=== PATIENT | female | born 1955 | race Caucasian/White ===

== ENCOUNTER → 2019-06-28 | Outpatient (BNVA) | payer OTHER, BC, SELFPAY | PROVIDERS: Family Provider Nurse Practitioner Family; PCP Nurse Practitioner Family; Visit Provider Nurse Practitioner Family | DX: M25.561 Pain in right knee (principal); G89.29 Other chronic pain; M17.11 Unilateral primary osteoarthritis, right knee | CPT/HCPCS: 73560 ==

== ENCOUNTER → 2019-06-29 17:12 | Outpatient (BNVA) | payer OTHER, BC, SELFPAY | PROVIDERS: Family Provider Nurse Practitioner Family; PCP Nurse Practitioner Family; Visit Provider Nurse Practitioner Family | DX: G89.29 Other chronic pain (principal); M17.10 Unilateral primary osteoarthritis, unspecified knee | CPT/HCPCS: 73560 ==

== ENCOUNTER → 2019-09-06 11:48 | Outpatient (BNVA) | payer OTHER, BC, SELFPAY | PROVIDERS: Family Provider Nurse Practitioner Family; PCP Nurse Practitioner Family; Visit Provider Nurse Practitioner Family | DX: M25.511 Pain in right shoulder (principal) | CPT/HCPCS: 73030 ==

== ENCOUNTER → 2019-09-08 11:45 | Outpatient (BNVA) | payer OTHER, BC, SELFPAY | PROVIDERS: Family Provider Nurse Practitioner Family; PCP Nurse Practitioner Family; Visit Provider Nurse Practitioner | DX: E03.9 Hypothyroidism, unspecified (principal) | CPT/HCPCS: 84443 ==

== ENCOUNTER 2020-03-20 15:17 | Outpatient (CLI) | payer OTHER, BC, SELFPAY ==
--- NOTE | 2020-03-20 15:23 | MM_ITS ---
WS: [id number] BILATERAL DIGITAL SCREENING MAMMOGRAM WITH CAD CLINICAL INFORMATION: SCREENING HISTORY: Screening mammogram. No current complaints. COMPARISON: TECHNIQUE: Bilateral CC and MLO views. FINDINGS: Fatty-replaced breasts bilaterally. No suspicious focal mass, asymmetry, calcifications, or web applications architect ural distortion. No evidence of malignancy. Dystrophic calcification right breast unchanged. MM/[id number] IMPRESSION: BI-RADS: 2-Benign FOLLOW UP: 1 Year Follow-up Recommend return to annual screening mammography.
== END 2020-03-20 15:18 | disposition home or self-care (01) ==
LOC: RADSHAW 15:21
PROVIDERS: PCP Nurse Practitioner Family; Visit Provider Nurse Practitioner Family
DX: Z12.31 Encounter for screening mammogram for malignant neoplasm of breast (principal)
CPT/HCPCS: 77067

== ENCOUNTER → 2020-05-23 11:37 | Outpatient (BNVA) | payer OTHER, BC, SELFPAY | PROVIDERS: PCP Nurse Practitioner Family; Visit Provider Nurse Practitioner Family | DX: N89.8 Other specified noninflammatory disorders of vagina (principal) | CPT/HCPCS: 87070; 87205 ==

== ENCOUNTER → 2020-10-22 12:04 | Outpatient (BNVA) | payer OTHER, BC, SELFPAY | PROVIDERS: PCP Nurse Practitioner Family; Visit Provider Nurse Practitioner Family | DX: N89.8 Other specified noninflammatory disorders of vagina (principal) | CPT/HCPCS: 87070; 87205 ==

== ENCOUNTER → 2020-11-01 10:43 | Outpatient (BNVA) | payer OTHER, BC, SELFPAY | PROVIDERS: PCP Nurse Practitioner Family; Visit Provider Nurse Practitioner Family | DX: R30.0 Dysuria (principal); R39.9 Unspecified symptoms and signs involving the genitourinary system | CPT/HCPCS: 81003; 87086 ==

== ENCOUNTER → 2020-11-20 11:11 | Outpatient (BNVA) | payer OTHER, BC, SELFPAY | PROVIDERS: PCP Nurse Practitioner Family; Visit Provider Nurse Practitioner Family | DX: I10 Essential (primary) hypertension (principal); E55.9 Vitamin D deficiency, unspecified; E03.9 Hypothyroidism, unspecified | CPT/HCPCS: 80053; 80061; 81003; 82306; 83036; 84443; 85025 ==

== ENCOUNTER 2021-04-15 09:11 | Outpatient (CLI) | payer OTHER, BC, SELFPAY ==
--- NOTE | 2021-04-15 09:17 | MM_ITS ---
WS: [id number] BILATERAL SCREENING DIGITAL MAMMOGRAM WITH CAD HISTORY: SCREENING COMPARISON: 03/20/2020, 02/04/2019 and 12/19/2016. Bilateral CC and MLO views submitted. Computer aided detection analyzed. Breast composition: There are scattered areas of fibroglandular density. No suspicious masses, microc alcifications or architectural distortion. Coarse benign calcification in the middle inferior RIGHT b reast. There is additional calcification central to the nipple posteriorly. These calcifications have been stable over multiple prior years. MM/[place] [id number] IMPRESSION: BI-RADS: 2-Benign FOLLOW UP: 1 Year Follow-up
== END 2021-04-15 09:12 | disposition home or self-care (01) ==
PROVIDERS: PCP Nurse Practitioner Family; Visit Provider Nurse Practitioner Family
DX: Z12.31 Encounter for screening mammogram for malignant neoplasm of breast (principal)
CPT/HCPCS: 77067

== ENCOUNTER → 2021-05-13 08:55 | Outpatient (BNVA) | payer OTHER, BC, SELFPAY | PROVIDERS: PCP Nurse Practitioner Family; Visit Provider Nurse Practitioner Family | DX: R06.02 Shortness of breath (principal) | CPT/HCPCS: 71046 ==

== ENCOUNTER → 2021-05-27 08:48 | Outpatient (BNVA) | payer OTHER, BC, SELFPAY | PROVIDERS: PCP Nurse Practitioner Family; Visit Provider Nurse Practitioner Family | DX: M79.641 Pain in right hand (principal) | CPT/HCPCS: 73130 ==

== ENCOUNTER → 2021-08-13 08:02 | Outpatient (BNVA) | payer OTHER, BC, SELFPAY | PROVIDERS: PCP Nurse Practitioner Family; Visit Provider Nurse Practitioner Family | DX: M25.9 Joint disorder, unspecified (principal) | CPT/HCPCS: 85651; 86140; 86160; 86162; 86200; 86235; 86255; 86376; 86431 ==

== ENCOUNTER → 2021-08-23 08:43 | Outpatient (BNVA) | payer OTHER, BC, SELFPAY | PROVIDERS: PCP Nurse Practitioner Family; Visit Provider Nurse Practitioner Family | DX: M25.471 Effusion, right ankle (principal) | CPT/HCPCS: 73610; 73630; 84550 ==

== ENCOUNTER → 2021-08-30 07:57 | Outpatient (BNVA) | payer OTHER, BC, SELFPAY | PROVIDERS: PCP Nurse Practitioner Family; Visit Provider Surgery | DX: Z20.822 Contact with and (suspected) exposure to COVID-19 (principal); Z11.52 Encounter for screening for COVID-19 | CPT/HCPCS: 87635 ==

== ENCOUNTER 2021-09-06 09:14 | Day surgery (SDC) | payer OTHER, BC, SELFPAY ==
[2021-09-04 11:44] VITALS: BMI 34.4
--- NOTE | 2021-09-06 09:34 | P.ANESASSM_ITS ---
Pre-Anesthetic Assessment Height/Weight: Height 1.7 m Weight 99.79 kg Operation Date: 09/06/21 11:00 Proposed Procedures p [id number]/[id number](Not Applicable) - Felice Rojas MD s Colonoscopy(Not Applicable) - Felice Rojas MD Familial anesthetic complications: None Was Beta Trace taken within 24 hours: N/A Was Clonidine taken within 24 hours: N/A Social No alcohol and No tobacco Exam alert, oriented x 3, clear to auscultation bilaterally and regular rate & rhythm Airway Submandibular: within normal limits Cervical ROM: within normal limits Mallampati: Class II Dentition: full GI Gastroesophageal Reflux Disease Metabolic Morbid Obesity Neuropsych Anxiety Anesthetic Plan ASA status: 2 Anesthesia: MAC Medications/Allergies Home Medications Medication Instructions Recorded Confirmed Last Taken Type krill oil 500 mg capsule 500 mg PO DAILY 11/21/20 09/04/21 Unknown History pantoprazole 40 mg tablet,delayed 40 mg PO BID #60 tab 05/29/21 09/04/21 Unknown Rx release (Protonix) alprazolam 0.5 mg tablet (Xanax) 0.25 mg PO DAILY 30 Days #15 tab 06/03/21 09/04/21 Unknown Rx gabapentin 300 mg capsule 300 mg PO .nightly 30 Days #30 cap 08/01/21 09/04/21 Unknown Rx naproxen 500 mg tablet 500 mg PO BID PRN 30 Days #60 tab 08/01/21 09/04/21 Unknown Rx ondansetron HCl 4 mg tablet 4 mg PO Q8H PRN #30 tab 08/01/21 09/04/21 Unknown Rx (Zofran) cholecalciferol (vitamin D3) 1,250 1,250 mcg PO DAILY 09/04/21 09/04/21 Unknown History mcg (50,000 unit) capsule Allergies Allergy/AdvReac Type Severity Reaction Status Date / Time Sulfa (Sulfonamide Allergy swelling Verified 08/01/21 13:20 Antibiotics) FOR[facility]LY [facility] Anesthesia Medical History (Updated 08/28/21 @ 14:16 by JOHN Cuevas) History of gastroesophageal reflux (GERD) Has had symptoms since her 30s controlled on medication. Positive JAYESH (antinuclear antibody) Surgical History History of basal cell carcinoma (~2018) local excision on the face History of colonoscopy 2013 History of hysterectomy (~1995) 03/14/1996----total abdominal hysterectomy, Uytkieow-Uchcwkgjw-Gihwgy procedure (still has ovaries). Diagnosis: Uterine fibroids and stress urinary incontinence. Performed by Dr. Emmanuel Maxwell at performed at [facility] [place] [facility] in [place], [place]. History of left knee surgery 2009----left knee scope Family History Mother Hypertension Father Hypertension Cancer prostate cancer-- father Hyperlipidemia Family/Other Colon cancer maternal aunt, two paternal aunts, all diagnosed in their 70s. Denies family history of Ovarian cancer Diabetes Clotting disorder Breast cancer Bleeding disorder Uterine cancer Stroke Data Anesthesia Cardiac Studies: No Data to Display
[2021-09-06 10:02] VITALS: BP 174/113; PULSE 79; RESP 16; TEMP 36.5; O2SAT 99
[2021-09-06] MEDS: sodium chloride 0.9% 1,000 ML 30 ML IV (10:13)
--- NOTE | 2021-09-06 11:57 | P.HP_ITS ---
Same Day Surgery H&P Indication for Procedure/HPI DATE OF PROCEDURE: September 06, 2021 CHIEF COMPLAINT/INDICATIONFOR SURGICAL PROCEDURE: egd/colon PREOP DIAGNOSIS: diagnostic PLANNED PROCEDURE: Operation Date: 09/06/21 11:00 Proposed Procedures p [id number](Not Applicable) - Felice Rojas MD s Colonoscopy(Not Applicable) - Felice Rojas MD Medications/Allergies* Home Medications Medication Instructions Recorded Confirmed Type krill oil 500 mg capsule 500 mg PO DAILY 11/21/20 09/06/21 History cholecalciferol (vitamin D3) 1,250 1,250 mcg PO DAILY 09/04/21 09/06/21 History mcg (50,000 unit) capsule Allergies/Adverse Reactions Allergy/AdvReac Type Severity Reaction Status Date / Time Sulfa (Sulfonamide Allergy swelling Verified 09/06/21 10:01 Antibiotics) Current Medications: Generic Name Dose Route Start Last Admin Trade Name Freq PRN Reason Stop Dose Admin Sodium Chloride 1,000 mls @ 30 mls/hr 09/06/21 09:45 09/06/21 10:13 Sodium Chloride 0.9% IV 09/07/21 09:44 30 mls/hr .Q24H SADIQ Administration Pertinent History/Comorbid Conditions* Medical History (Updated 08/28/21 @ 14:16 by JOHN Cuevas) History of gastroesophageal reflux (GERD) Has had symptoms since her 30s controlled on medication. Positive JAYESH (antinuclear antibody) Surgical History (Updated 07/22/21 @ 09:00 by Felice Rojas MD) History of basal cell carcinoma (~2017) local excision on the face History of colonoscopy 2013 History of hysterectomy (~1995) 03/14/1996----total abdominal hysterectomy, Iweihezg-Nxysnbtvm-Srkafh procedure (still has ovaries). Diagnosis: Uterine fibroids and stress urinary incontinence. Performed by Dr. Emmnauel Maxwell at performed at [facility] in [place], [place]. History of left knee surgery 2009----left knee scope Family History (Updated 05/08/21 @ 10:08 by Sari Church RN) Colon cancer Family/Other maternal aunt, two paternal aunts, all diagnosed in their 70s. Hyperlipidemia Father Cancer Father prostate cancer-- father Hypertension Mother Father Denies family history of Ovarian cancer Diabetes Clotting disorder Breast cancer Bleeding disorder Uterine cancer Stroke Pertinent Exam Findings alert, oriented x 3 and regular rate & rhythm Recommendations Surgery/Procedure today Coding Level of Care Code Acute Launch Check Out for [place]
[2021-09-06 12:34] VITALS: BP 108/61; PULSE 68; RESP 18; TEMP 36.2; O2SAT 95
--- NOTE | 2021-09-06 12:35 | ANE.PACU2 ---
Inpatient post-anesthesia follow up: Airway intact: Yes Vital signs: Temperature 97.1 F Pulse Rate 68 Respiratory Rate 18 Blood Pressure 108/61 Pulse Oximetry 95 Oxygen Delivery Me thod Nasal Cannula Oxygen Flow Rate 3 Fraction of Inspir ed Oxygen Hydration adequate: Yes Nausea and vomiting: No Pain level: 1 Mental status: Baseline
[2021-09-06 12:41] VITALS: BP 114/65; PULSE 68; RESP 17; O2SAT 100
== END 2021-09-06 12:54 | disposition home or self-care (01) ==
PROVIDERS: PCP Nurse Practitioner Family; Visit Provider Surgery
PROC: 0DJ08ZZ Inspection of Upper Intestinal Tract, Via Natural or Artificial Opening Endoscopic (ICD-10-PCS; CPT 43235; principal; 2021-09-06 11:00)
PROC: 0DJD8ZZ Inspection of Lower Intestinal Tract, Via Natural or Artificial Opening Endoscopic (ICD-10-PCS; CPT 45378; 2021-09-06 11:00)
DX: K57.30 Diverticulosis of large intestine without perforation or abscess without bleeding (principal); K29.70 Gastritis, unspecified, without bleeding; Z80.0 Family history of malignant neoplasm of digestive organs; K21.9 Gastro-esophageal reflux disease without esophagitis; Z82.49 Family history of ischemic heart disease and other diseases of the circulatory system; E66.01 Morbid (severe) obesity due to excess calories; Z68.34 Body mass index [BMI] 34.0-34.9, adult; D12.4 Benign neoplasm of descending colon
CPT/HCPCS: 43239; 45380; 88305; 88342; J2704; J7030

== ENCOUNTER → 2021-11-18 11:52 | Outpatient (BNVA) | payer OTHER, BC, MEDICARE, SELFPAY | PROVIDERS: PCP Nurse Practitioner Family; Visit Provider Nurse Practitioner | DX: E03.9 Hypothyroidism, unspecified (principal); E55.9 Vitamin D deficiency, unspecified | CPT/HCPCS: 82306; 84443 ==

== ENCOUNTER → 2021-12-30 13:37 | Outpatient (BNVA) | payer OTHER, BC, MEDICARE, SELFPAY | PROVIDERS: PCP Nurse Practitioner Family; Visit Provider Nurse Practitioner | DX: M17.12 Unilateral primary osteoarthritis, left knee (principal); M25.562 Pain in left knee | CPT/HCPCS: 73562 ==

== ENCOUNTER → 2022-03-11 07:32 | Outpatient (BNVA) | payer OTHER, BC, SELFPAY | PROVIDERS: PCP Nurse Practitioner Family; Visit Provider Student in an Organized Health Care Education/Training Program | DX: M17.0 Bilateral primary osteoarthritis of knee (principal) | CPT/HCPCS: 73560; 73565 ==

== ENCOUNTER 2022-03-11 08:29 | Outpatient (CLI) | payer OTHER, BC, SELFPAY | END 2022-03-11 08:30 | disposition home or self-care (01) | LOC: SPT 08:31 | PROVIDERS: PCP Nurse Practitioner Family; Visit Provider Student in an Organized Health Care Education/Training Program | DX: Z46.89 Encounter for fitting and adjustment of other specified devices (principal); M17.11 Unilateral primary osteoarthritis, right knee | CPT/HCPCS: 97760; L1852 ==

== ENCOUNTER 2022-07-02 08:05 | Outpatient (CLI) | payer OTHER, BC, SELFPAY ==
--- NOTE | 2022-07-02 08:12 | MM_ITS ---
WS: [id number] BILATERAL SCREENING DIGITAL TOMOSYNTHESIS MAMMOGRAM WITH CAD HISTORY: SCREENING COMPARISON: 04/15/2021, 03/20/2020 and 01/27/2018 Bilateral CC and MLO views with tomosynthesis and synthetic mammography submitted. Computer aided det ection analyzed. Breast composition: There are scattered areas of fibroglandular density. No suspicious masses, microc alcifications or architectural distortion. Coarse calcifications probably degenerating fibroadenoma c entral RIGHT breast. Benign calcifications RIGHT breast. MM/[place] [id number] IMPRESSION: BI-RADS: 2-Benign FOLLOW UP: 1 Year Follow-up
== END 2022-07-02 08:06 | disposition home or self-care (01) ==
PROVIDERS: PCP Nurse Practitioner; Visit Provider Nurse Practitioner
DX: Z12.31 Encounter for screening mammogram for malignant neoplasm of breast (principal)
CPT/HCPCS: 77063; 77067

== ENCOUNTER → 2022-08-12 15:10 | Outpatient (BNVA) | payer OTHER, BC, SELFPAY | PROVIDERS: PCP Nurse Practitioner; Visit Provider Nurse Practitioner | DX: M47.897 Other spondylosis, lumbosacral region (principal) | CPT/HCPCS: 72100 ==

== ENCOUNTER 2022-09-16 06:00 | Outpatient (RCR) | payer OTHER, BC, SELFPAY | END 2022-10-12 23:59 | disposition home or self-care (01) | LOC: WPT 06:00 | PROVIDERS: PCP Nurse Practitioner; Visit Provider Nurse Practitioner | DX: M54.50 Low back pain, unspecified (principal) | CPT/HCPCS: 97110; 97112; 97161; 97530 ==

== ENCOUNTER 2022-10-13 06:00 | Outpatient (RCR) | payer OTHER, BC, SELFPAY | END 2022-11-12 23:59 | disposition home or self-care (01) | LOC: WPT 06:00 | PROVIDERS: PCP Nurse Practitioner; Visit Provider Nurse Practitioner | DX: M54.50 Low back pain, unspecified (principal) | CPT/HCPCS: 97110; 97112; 97530 ==

== ENCOUNTER → 2022-10-13 10:32 | Outpatient (BNVA) | payer OTHER, BC, SELFPAY | PROVIDERS: PCP Nurse Practitioner; Visit Provider Nurse Practitioner | DX: Z00.00 Encounter for general adult medical examination without abnormal findings (principal); Z79.899 Other long term (current) drug therapy | CPT/HCPCS: 80053; 82306; 84443; 85025 ==

== ENCOUNTER 2022-11-22 02:19 | Outpatient (RCR) | payer OTHER, BC, SELFPAY | END 2022-12-12 23:59 | disposition home or self-care (01) | LOC: WPT 02:19 | PROVIDERS: PCP Nurse Practitioner; Visit Provider Nurse Practitioner | DX: M54.50 Low back pain, unspecified (principal) | CPT/HCPCS: 97110; 97112; 97530 ==

== ENCOUNTER → 2022-11-24 11:26 | Outpatient (BNVA) | payer OTHER, BC, SELFPAY | PROVIDERS: PCP Nurse Practitioner; Visit Provider Nurse Practitioner | DX: L68.0 Hirsutism (principal) | CPT/HCPCS: 82627; 82670; 83001; 83002; 84144; 84146; 84403 ==

== ENCOUNTER 2022-12-01 06:50 | Outpatient (CLI) | payer OTHER, BC, SELFPAY ==
--- NOTE | 2022-12-01 07:15 | MR_ITS ---
WS: [id number] MRI LUMBAR SPINE NONCONTRAST HISTORY: numbness and tingling; back pain, LEFT lower extremity pain. COMPARISON: 10/02/2009 TECHNIQUE: Sagittal and axial multisequence imaging is submitted. Mild thoracolumbar curvature. L4 anterolisthesis by 3 mm. Otherwise alignment is normal. Moderate advanced degenerative disc diseas e at L5-S1. No marrow edema or compression fracture. Conus terminates normally at L1. L1-L2: Normal. L2-L3: Mild annular disc bulging and mild ligamentum flavum and facet arthritis. Mild bilateral subar ticular recess encroachment. L3-L4: Mild facet arthritis. No stenosis L4-L5: Diffuse annular disc bulge. Very shallow central and LEFT foraminal disc protrusions. Moderate ligamentum flavum and facet arthritis. Moderate central, bilateral subarticular recess and mild fora hasmukh stenosis. Most significant disc contact on the traversing L5 nerve roots. Nerve roots are being deformed. Moderate facet joint arthritis. L5-S1: Mild disc bulging. Shallow LEFT foraminal disc protrusion. Disc also contacts the S1 nerve bang ts, LEFT greater than RIGHT. Annular fissure in the LEFT foraminal disc protrusion and osteophytic ri dging of the vertebral body. Mild LEFT foraminal stenosis. Mild facet arthritis. MR/MR lumbar spine wo con* [id number] IMPRESSION: 1. L4 anterolisthesis by 3 mm. 2. Moderate central, bilateral subarticular recess and mild foraminal stenosis at L4-5. Most significant contact on the traversing L5 nerve roots. Central an d LEFT foraminal shallow disc protrusions at L4-5. 3. Shallow LEFT foraminal disc protrusion at L5-S1 with disc contacting the S1 nerve roots, LEFT greater than RIGHT. Mild LEFT foraminal stenosis. 4. Moderate facet joint arthritis at L4-5 and mild at L2-3, L3-4 and L5-S1.
== END 2022-12-01 06:51 | disposition home or self-care (01) ==
PROVIDERS: PCP Nurse Practitioner; Visit Provider Nurse Practitioner
DX: M51.27 Other intervertebral disc displacement, lumbosacral region (principal); M48.061 Spinal stenosis, lumbar region without neurogenic claudication; M47.817 Spondylosis without myelopathy or radiculopathy, lumbosacral region; R20.0 Anesthesia of skin; R20.2 Paresthesia of skin
CPT/HCPCS: 72148

== ENCOUNTER → 2022-12-04 08:28 | Outpatient (BNVA) | payer OTHER, BC, SELFPAY | PROVIDERS: PCP Nurse Practitioner; Visit Provider Physician Assistant | DX: M54.50 Low back pain, unspecified (principal) | CPT/HCPCS: 72100 ==

== ENCOUNTER → 2023-01-27 09:16 | Outpatient (BNVA) | payer OTHER, BC, SELFPAY | PROVIDERS: PCP Nurse Practitioner; Visit Provider Nurse Practitioner | DX: M79.641 Pain in right hand (principal) | CPT/HCPCS: 73130 ==

== ENCOUNTER → 2023-05-05 08:39 | Outpatient (BNVA) | payer OTHER, BC, SELFPAY | PROVIDERS: PCP Nurse Practitioner; Visit Provider Nurse Practitioner Women's Health | DX: Z78.0 Asymptomatic menopausal state (principal) | CPT/HCPCS: 82306 ==

== ENCOUNTER 2023-05-13 15:45 | Outpatient (CLI) | payer OTHER, BC, SELFPAY ==
--- NOTE | 2023-05-13 16:00 | MR_ITS ---
WS: [id number] MRI RIGHT KNEE HISTORY: M17.10 - Unilateral primary osteoarthritis, unspecified knee COMPARISON: 12/13/2010 Anterior cruciate ligament: Extensive mucoid degeneration throughout the ACL. There is no full-thickn ess tear. The areas of increased signal all appear to be degenerative. Posterior cruciate ligament: Mild mucoid degeneration but intact. Medial collateral ligament: Displacement from the joint line by an extruded meniscus and osteophyte. No MCL tear. Posterior lateral corner structures: Intact. Medial menisci: Abnormal signal in the anterior and posterior horns with extrusion from the joint bobby e. Complex tear in the posterior horn extends into the meniscal root. Complete loss of normal signal within the meniscus. Lateral meniscus: Blunting of the posterior horn free edge. Otherwise negative. Extensor mechanism: Distal quadriceps tendon and patellar tendons are intact. Fluid and soft tissue: Moderate joint effusion. The joint effusion contains small loose bodies throug hout. There is an additional Prince's cyst. There is a complex collection posterior to the lateral fem oral condyle which is probably a distended bursa containing small loose bodies. There are also small loose bodies within the Prince's cyst component. Osseous and articular structures: Patellofemoral compartment: Mild patellofemoral joint space narrowing with mild diffuse chondromalaci a Medial compartment: Moderate narrowing of the medial compartment with near complete loss of cartilage . Marrow edema along the medial tibial plateau. Small marginal osteophytes. Lateral compartment: Mild narrowing of the lateral compartment with moderate diffuse chondromalacia. Small osteochondral lesion along the anterior tibial plateau. IMPRESSION: 1. Extensive mucoid degeneration throughout the ACL is related to aging. 2. Anterior and posterior horns of the medial meniscus are extruded from the joint line with a comple x tear in the posterior horn extending into the meniscal root. 3. Suspect small radial tear free edge posterior horn of the lateral meniscus. 4. Moderate size joint effusion with numerous small loose bodies. 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 5. Moderate-sized Prince's cyst. 6. Moderate narrowing medial compartment with diffuse loss of cartilage. 7. Marrow edema along the tibial plateau. 8. Mild narrowing of the patellofemoral and lateral compartments.
== END 2023-05-13 15:46 | disposition home or self-care (01) ==
LOC: RAD 15:46
PROVIDERS: PCP Nurse Practitioner; Visit Provider Nurse Practitioner Family
DX: M17.11 Unilateral primary osteoarthritis, right knee (principal); S83.231A Complex tear of medial meniscus, current injury, right knee, initial encounter; X58.XXXA Exposure to other specified factors, initial encounter; M25.461 Effusion, right knee; M23.41 Loose body in knee, right knee; M71.21 Synovial cyst of popliteal space [Baker], right knee
CPT/HCPCS: 73721

== ENCOUNTER 2023-07-01 08:20 | Outpatient (CLI) | payer OTHER, BC, SELFPAY ==
--- NOTE | 2023-07-01 08:24 | US_ITS ---
WS: [id number] Complete ABDOMINAL ULTRASOUND HISTORY: K81.9 - Cholecystitis, unspecified COMPARISON: None available. Liver: 15.5 cm in length. Normal size liver and echogenicity. No bile duct dilatation or mass. Portal Vein: Normal hepatopetal flow with monophasic waveform. Gallbladder: Normally distended gallbladder with no stones or wall thickening. CBD: 0.2 cm Pancreas: Normal size and echogenicity. Right kidney: 9.9 cm x 6.4 x 5.0 cm. Cortex: 1.2 cm. Normal size and echogenicity. No hydronephrosis or mass. Left kidney: 9.2 cm x 4.6 cm x 5.2 cm. Cortex: 1.2 cm. Normal size and echogenicity. No hydronephrosis or mass. Spleen: Normal. Aorta and IVC: Unremarkable abdominal aorta and IVC. Impression: Normal complete abdomen ultrasound.
== END 2023-07-01 08:21 | disposition home or self-care (01) ==
LOC: RAD 08:20
PROVIDERS: PCP Nurse Practitioner; Visit Provider Nurse Practitioner Family
DX: K81.9 Cholecystitis, unspecified (principal); Z87.19 Personal history of other diseases of the digestive system; M51.36 Other intervertebral disc degeneration, lumbar region; K29.70 Gastritis, unspecified, without bleeding; Z13.6 Encounter for screening for cardiovascular disorders; Z79.899 Other long term (current) drug therapy
CPT/HCPCS: 76700; 80053; 80061; 81003; 82150; 82607; 82746; 83036; 83550; 83690; 84439; 84443; 85025; 85651; 86140

== ENCOUNTER 2023-08-19 09:30 | Outpatient (CLI) | payer OTHER, BC, SELFPAY ==
--- NOTE | 2023-08-19 09:30 | MM_ITS ---
WS: [id number] BILATERAL SCREENING DIGITAL TOMOSYNTHESIS MAMMOGRAM WITH CAD HISTORY: Z12.31 - Encounter for screening mammogram for malignant ... COMPARISON: 07/02/2022, 04/15/2021 and 03/20/2020 Bilateral CC and MLO views with tomosynthesis and synthetic mammography submitted. Computer aided det ection analyzed. Breast composition: The breasts are almost entirely fatty. No suspicious masses, microcalcifications or architectural distortion. Benign coarse calcification in the central RIGHT breast from a degenerat ing fibroadenoma. No suspicious masses and no calcifications. IMPRESSION: MM/[place] [id number] BI-RADS: 2-Benign FOLLOW UP: 1 Year Follow-up
== END 2023-08-19 09:31 | disposition home or self-care (01) ==
LOC: MOBLMAM 09:38
PROVIDERS: PCP Nurse Practitioner Women's Health; Referring Provider Nurse Practitioner Family; Visit Provider Nurse Practitioner Women's Health
DX: Z12.31 Encounter for screening mammogram for malignant neoplasm of breast (principal)
CPT/HCPCS: 77063; 77067; 82306

== ENCOUNTER → 2023-09-22 10:54 | Outpatient (BNVA) | payer OTHER, BC, SELFPAY | PROVIDERS: PCP Nurse Practitioner Family; Visit Provider Student in an Organized Health Care Education/Training Program | DX: M25.461 Effusion, right knee (principal); M17.11 Unilateral primary osteoarthritis, right knee | CPT/HCPCS: 73560; 73565 ==

== ENCOUNTER → 2023-11-12 11:32 | Outpatient (BNVA) | payer OTHER, BC, SELFPAY | PROVIDERS: PCP Nurse Practitioner Family; Visit Provider Student in an Organized Health Care Education/Training Program | DX: Z01.818 Encounter for other preprocedural examination (principal); Z79.899 Other long term (current) drug therapy | CPT/HCPCS: 80053; 81000; 85025 ==

== ENCOUNTER → 2023-11-16 12:06 | Outpatient (BNVA) | payer OTHER, BC, SELFPAY | PROVIDERS: PCP Nurse Practitioner Family; Visit Provider Family Medicine | DX: Z01.818 Encounter for other preprocedural examination (principal); I21.19 ST elevation (STEMI) myocardial infarction involving other coronary artery of inferior wall; Z79.899 Other long term (current) drug therapy | CPT/HCPCS: 81003; 87086; 93005 ==

== ENCOUNTER 2023-11-20 13:58 | Outpatient (CLI) | payer OTHER, BC, SELFPAY ==
--- NOTE | 2023-11-20 14:30 | CT_ITS ---
WS: [email or web address] CT RIGHT KNEE, NONCONTRAST [facility] TECHNIQUE: Noncontrast CT of the RIGHT knee to include the RIGHT hip and ankle. CLINICAL INFORMATION: M17.11 - Unilateral primary osteoarthritis, right knee DLP: 876.[address] scans at [facility] use at least one of these dose optimization techniques: automated e xposure control; mA and/or kV adjustment per patient size (includes targeted exams where dose is matc hed to clinical indication); or iterative reconstruction. FINDINGS: Moderate to advanced tricompartmental arthritis RIGHT knee. Hypertrophic patella. Moderate suprapatel lar effusion. Lobulated popliteal cyst measuring 2.7 x 1.8 cm. Hypertrophic changes along the joint l ine. Small bladder cystocele. CT/[place] NEO [id number] IMPRESSION: Images obtained for preoperative purposes.
== END 2023-11-20 13:59 | disposition home or self-care (01) ==
LOC: RAD 13:59
PROVIDERS: PCP Nurse Practitioner Family; Visit Provider Student in an Organized Health Care Education/Training Program
DX: Z01.818 Encounter for other preprocedural examination (principal); M17.11 Unilateral primary osteoarthritis, right knee; M79.4 Hypertrophy of (infrapatellar) fat pad; M25.461 Effusion, right knee; M71.21 Synovial cyst of popliteal space [Baker], right knee; N81.10 Cystocele, unspecified
CPT/HCPCS: 73700

== ENCOUNTER 2023-11-30 15:13 | Observation (INO) | payer OTHER, BC, SELFPAY ==
[2023-11-30] VITALS (11 sets, daily range): BP systolic 106–192; BP diastolic 57–114; PULSE 75–101; RESP 14–18; TEMP 36.2–36.6; O2SAT 96–99; BMI 35.3
[2023-11-30] MEDS: lactated ringers 500 ML IV (12:40)
[2023-11-30] MEDS: scopolamine 1.5 Patch 1 PATCH TRANSDERMA (12:40)
[2023-11-30] MEDS: ketorolac 30 mg/mL INJ IVP (12:40)
[2023-11-30] MEDS: acetaminophen 1,000 MG/100 ML PIGGYBACK 400 MG IV ×2 (12:40→21:05)
[2023-11-30] MEDS: sodium chloride 0.9% 1,000 ML 30 ML IV (12:41)
--- NOTE | 2023-11-30 12:55 | P.ANESASSM_ITS ---
Pre-Anesthetic Assessment Height/Weight: Height 1.68 m Weight 99.337 kg Temp Pulse Resp BP Pulse Ox O2 Del Method 97.4 F L 95 18 192/114 99 Room Air 11/30/23 12:04 11/30/23 12:04 11/30/23 12:04 11/30/23 12:04 11/30/23 12:04 11/30/23 12:05 Operation Date: 11/30/23 13:50 Proposed Procedures p [facility] Total Knee Arthroplasty(Right) - Mike Peña DO Familial anesthetic complications: None Was Beta Trace taken within 24 hours: N/A Was Clonidine taken within 24 hours: N/A Last intake: Intake Last Liquid Date 11/29/23 Last Liquid Time 22:00 Last Solid Date 11/29/23 Last Solid Time 20:00 Social No alcohol and No tobacco Airway Mallampati: Class II CV/HEM Hypertension GI Gastroesophageal Reflux Disease Anesthetic Plan ASA status: 2 Anesthesia: Regional (specify below) Risk of > 500 ml blood loss (7ml/kg in children): No Medications/Allergies Home Medications Medication Instructions Recorded Confirmed Last Taken Type meloxicam 15 mg tablet 15 mg PO DAILY #90 tabs 04/30/23 11/27/23 11/20/23 Rx alprazolam 0.5 mg tablet 0.5 mg PO PRN PRN Anxiety 08/26/23 11/30/23 11/29/23 History cyclobenzaprine 5 mg tablet 5 mg PO TID PRN muscle spasm #30 09/15/23 11/27/23 11/27/23 Rx tabs pantoprazole 40 mg tablet,delayed 40 mg PO DAILY 11/16/23 11/30/23 11/29/23 History release telmisartan 40 mg tablet 40 mg PO DAILY #90 tabs 11/17/23 11/30/23 11/29/23 Rx Allergies Allergy/AdvReac Type Severity Reaction Status Date / Time Sulfa (Sulfonamide Allergy swelling Verified 11/27/23 08:56 Antibiotics) Current Medications Generic Name Dose Route Start Last Admin Trade Name Freq PRN Reason Stop Dose Admin Sodium Chloride 1,000 mls @ 30 mls/hr 11/30/23 12:00 11/30/23 12:41 Sodium Chloride 0.9% IV 12/01/23 11:59 30 mls/hr .Q24H SADIQ Administration PFSH Anesthesia Medical History Gastritis UTI symptoms Psychiatric care Positive JAYESH (antinuclear antibody) History of gastroesophageal reflux (GERD) Has had symptoms since her 30s controlled on medication. Surgical History H/O esophagogastroduodenoscopy (09/06/21) History of colonoscopy 2013 2021 - colon polyp ,diverticulosis History of basal cell carcinoma (~2017) local excision on the face History of left knee surgery 2009----left knee scope History of hysterectomy (~1995) 03/14/1996----total abdominal hysterectomy, Rshpvcqg-Vlaxorylh-Lzdnob procedure (still has ovaries). Diagnosis: Uterine fibroids and stress urinary incontinence. Performed by Dr. Emmanuel Maxwell at performed at [facility] in [place], [place]. Family History Mother Hypertension Father Hypertension Cancer prostate cancer-- father Hyperlipidemia Family/Other Colon cancer maternal aunt, two paternal aunts, all diagnosed in their 70s. Denies family history of Ovarian cancer Diabetes Clotting disorder Breast cancer Bleeding disorder Uterine cancer Stroke Social History Smoking and tobacco/nicotine status: never used tobacco/nicotine Data Anesthesia Cardiac Studies: No Data to Display
--- NOTE | 2023-11-30 13:20 | W.PM.OPSFHP ---
Same Day Surgery H&P Indication for Procedure/HPI DATE OF PROCEDURE: November 30, 2023 CHIEF COMPLAINT/INDICATIONFOR SURGICAL PROCEDURE: Right knee degenerative joint disease PREOP DIAGNOSIS: right knee degenerative joint disease PLANNED PROCEDURE: Operation Date: 11/30/23 13:50 Proposed Procedures p [facility] Total Knee Arthroplasty(Right) - Mike Peña DO Medications/Allergies* Home Medications Medication Instructions Recorded Confirmed Type alprazolam 0.5 mg tablet 0.5 mg PO PRN PRN Anxiety 08/26/23 11/30/23 History pantoprazole 40 mg tablet,delayed 40 mg PO DAILY 11/16/23 11/30/23 History release Allergies/Adverse Reactions Allergy/AdvReac Type Severity Reaction Status Date / Time Sulfa (Sulfonamide Allergy swelling Verified 11/27/23 08:56 Antibiotics) Current Medications: Generic Name Dose Route Start Last Admin Trade Name Freq PRN Reason Stop Dose Admin Sodium Chloride 1,000 mls @ 30 mls/hr 11/30/23 12:00 11/30/23 12:58 Sodium Chloride 0.9% IV 12/01/23 11:59 Infused .Q24H SADIQ Infusion Pertinent History/Comorbid Conditions* Medical History (Updated 10/05/23 @ 22:31 by Mike Peña DO) Gastritis UTI symptoms Psychiatric care Positive JAYESH (antinuclear antibody) History of gastroesophageal reflux (GERD) Has had symptoms since her 30s controlled on medication. Surgical History (Updated 09/06/21 @ 12:35 by Felice Rojas MD) H/O esophagogastroduodenoscopy (09/06/21) History of colonoscopy 2013 2021 - colon polyp ,diverticulosis History of basal cell carcinoma (~2017) local excision on the face History of left knee surgery 2009----left knee scope History of hysterectomy (~1995) 03/14/1996----total abdominal hysterectomy, Oisqgmgv-Otpibcbtf-Crngms procedure (still has ovaries). Diagnosis: Uterine fibroids and stress urinary incontinence. Performed by Dr. Emmanuel Maxwell at performed at [facility] in [place], [place]. Family History (Updated 05/08/21 @ 10:08 by Sari Church RN) Colon cancer Family/Other maternal aunt, two paternal aunts, all diagnosed in their 70s. Hyperlipidemia Father Cancer Father prostate cancer-- father Hypertension Mother Father Denies family history of Ovarian cancer Diabetes Clotting disorder Breast cancer Bleeding disorder Uterine cancer Stroke Social History Smoking and tobacco/nicotine status: never used tobacco/nicotine Pertinent Exam Findings alert, oriented x 3, operative site marked and procedure specific exam findings Please refer to detailed orthopedic examination on 10/29/2023 see below: Right knee examination: Patient has mild joint effusion noted Slight pain on end ranges of motion of flexion as well as extension, significant medial joint line tenderness to palpation as well as lateral joint line tenderness to palpation, patellar crepitus noted on knee range of motion as well as tenderness palpation over the retropatellar space. Patient is stable varus valgus stress with a 5 to 10 degree varus deformity that is correctable and stress examination smooth hip range of motion with no pain stable varus valgus stress. Pain with Megan's but no palpable click stable Bret's examination Recommendations Surgery/Procedure today Other Plans: Plan to proceed to the OR today for right total knee arthroplasty?[facility] robotic assisted. Patient understands the ins and outs procedure the risk benefits complication alternatives of surgery and through shared decision-making elects proceed with surgical intervention. All questions answered. No change in health since preoperative clinic Coding Level of Care Code Acute Code for g Fwd
[2023-11-30] MEDS: ceFAZolin 2,000 MG in sodium chloride 0.9% (plus) 50 ML 100 MG IV ×2 (13:25→21:48)
[2023-11-30 13:27] LABS: Basophils % 0.5 %; Eosinophils # 0.1 10^3/uL (0.0-0.8); Eosinophils % 0.8 %; Hematocrit 40.1 % (36-47); Lymphocytes # 2.4 10^3/uL (0.8-4.8); Lymphocytes % 29.9 %; Mean Corpuscular HGB Conc 31.4 g/dL (30-55); Mean Corpuscular Hemoglobin 25.4 pg (27-33); Mean Corpuscular Volume 80.8 fl (85-98); Mean Platelet Volume 10.8 fL (7.4-10.4); Monocytes # 0.6 10^3/uL (0.2-0.9); Monocytes % 7.2 %; Neutrophils # 4.85 10^3/uL (1.8-7.7); Neutrophils % 61.3 %; Nucleated Red Blood Cells % 0 %; Platelet Count 412 10^3/cmm (157-399); Red Blood Count 4.96 10^6/uL (3.85-5.65); Red Cell Distribution Width 14.9 % (12.1-15.1)
[2023-11-30 13:42] LABS: Anion Gap 16.1 (5-19); Blood Urea Nitrogen 11 mg/dL (8-23); Calcium 9.2 mg/dL (8.5-10.5); Carbon Dioxide 25 mmol/L (22-29); Chloride 103 mmol/L (98-107); Creatinine Clr Calc Pharmacy 81.1334; Glomerular Filtration Rate 83.5 mL/min (90-130); Glucose 95 mg/dL (65-115); Osmolality Calculated 289 mOsm/kg (285-295); Potassium 4.1 mmol/L (3.5-5.1); Sodium 140 mmol/L (136-145)
[2023-11-30] MEDS: tranexamic acid 1,000 mg/10mL SDV 1000 MG IV (13:58)
[2023-11-30] MEDS: ROPivacaine 0.2% Premix 100 mL 200 MG INTRA-ARTI (14:50)
[2023-11-30] MEDS: EPINEPHrine 1 mg/mL INJ XX (14:50)
[2023-11-30] MEDS: ketorolac 30 mg/mL INJ XX (14:50)
[2023-11-30] MEDS: tranexamic acid 1,000 mg/10mL SDV 1000 MG XX (14:50)
[2023-11-30] MEDS: vancomycin 1,000 MG SDV 1000 MG XX (14:52)
--- NOTE | 2023-11-30 15:14 | PM.OP ---
Operative Report Date of procedure: November 30, 2023 Surgeon: Mike Peña DO Retort Furnace Helper: Abisai Peña PA-C: PA was necessary for assistance in this case with leg positioning retraction and protection of neurovascular structures as well as assistance in implantation wound closure and dressing application. Procedure: Preoperative diagnosis: Right knee degenerative joint disease Post-op diagnosis: Same Procedure done: Right total knee arthroplasty, cemented?robotic assisted [place] Implants: Topher triathlon size 3 femur CR cemented?Right [place] triathlon size? 3 tibia universal baseplate cemented [place] triathlon symmetric patella size 31 mm Topher triathlon polyethylene 9mm Surgeon: Mike Peña DO Estimated blood?loss: 25 mL Tourniquet 55minutes IV fluids: 1200 mL Urine output: 800 mL Complications: None Condition: stable Disposition: floor Brief History: Patient is a 68-year-old female with with chronic?Right knee degenerative joint disease.? Patient has been worked up in the outpatient setting in the orthopedic office at this point time through shared decision making given? [id number] arthritis as well as failed conservative treatment, and pt would?like to proceed with a?Right total knee arthroplasty.? Through shared decision making elected to proceed with surgical intervention for?Right total knee arthroplasty.? We talked about continued conservative treatment and surgical intervention as far as the risk benefits complications alternatives surgical and nonsurgical treatment options.? At this point time understanding patient risks with surgery she agrees to proceed with surgical intervention.? Once again? risk with surgery include but are not?limited to make it better make it worse blood clot, heart attack, stroke, on the table, infection, injury to nerves or vessels, persistent pain, arthrofibrosis, implant failure.? Understanding these risks patient agrees to proceed with surgical intervention consent was obtained in the office.? All questions answered. Procedure: Patient was seen and evaluated in the preoperative holding area.? Consent was reviewed and signed with patient with plan for?Right total knee arthroplasty.? All questions answered.? Correct extremity marked.? Patient seen and evaluated by the anesthesia department and once cleared for surgery was taken back to the operative suite.? Patient was placed into a supine position on the OR table.? All bony prominences were well-padded.? Patient was appropriately secured to the bed.? Patient underwent anesthesia per the anesthesia department.?? A nonsterile tourniquet was applied to the?Right thigh.? At this point in time a final timeout performed.? Patient received appropriate preoperative antibiotics and TXA. Next the?Right?lower extremity was then prepped and draped in standard orthopedic fashion. Esmarch tourniquet was used exsanguinate the?Right?lower extremity.? Tourniquet was insufflated to 250 mmHg. A standard anterior incision was made over midline of the knee.? Sharp scalpel excision through skin and subcutaneous tissue full-thickness skin flaps were made.? Fascia was elevated off of the extensor retinaculum was stable with medial parapatellar arthrotomy was then made.? The performed standard sequential releases..? Immediately on entry into the joint patient was found to have severe eburnated bone and tricompartmental arthritic changes noted.? With significant osteophyte formation.? Next the the patella was then stuffed and the knee was then flexed.?? Mayte was placed superiorly around the anterior aspect of the femur this was freed of synovium and I subsequently then placed by 2 femur pins to establish my femur arrays for the [place] robot.? These were then placed bicortically and? femur array was then appropriately secured with appropriate visualization.? Next attention was turned towards the tibial rays.? These were then drilled sequentially bicortically in parallel fashion and intraincisional.? I then placed my guide as well as my tibial array on in place.? This was appropriately secured and had excellent visualization with the [place] robot.? Next the tibial checkpoint as well as femur checkpoint were then placed.? At this point time I then subsequently established my head center as well as my medial?lateral malleoli as well as my checkpoints.? Next utilizing standard Orlando technology I then mapped out the appropriate points and confirmation points around the femur as well as the tibia in standard fashion.? Once this was then done I then removed all osteophytes in preparation for dynamic testing.? All osteophytes were removed as well as I removed the ACL and the PCL was excised due to its significant tearing and degeneration noted.? At this point time the knee was brought into full extension and we performed our standard evaluation of our gap balancing stressing his?ligaments and extension as well as flexion appropriate adjustments were made to have appropriate gap balancing in both flexion and extension.? This plan for final counts.? We get a preoperative plan evaluating our implants which was a size 3 femur and a size 3 tibia.? Next we brought in the [place] robot and sequentially made our femur cuts.? All excess bony cuts were then removed.? Finally we made our tibial cut.? Once this was done a standard PCL retractor was then placed into this position I excised the medial and?lateral meniscus.? The tibial cut was then subsequently removed all excess bony debris was removed.? I then utilized a?lamina seo professional and remove the posterior osteophytes.? At this point time sized the tibia and confirmed this was a size 3.? I utilized our blunt probe to establish rotation of tibial implant.? Once this was done I then placed my tibia size 3 trial in appropriate position and then subsequently placed tibial pins to hold this into place placed a size 9 mm poly as well as a size 3 femur which was appropriately impacted in place knee was then subsequently brought into extension. Trials were then assessed,? this was stable with varus valgus stress in extension as well as had symmetrical translation when brought into flexion demonstrating symmetrical gaps. I had excellent balance gaps in flexion and extension with varus and valgus stresses.? At this point I was satisfied with these implants these were then verified and opened on the back table size 3 tibia, size 3 femur,? size 9 mm polythickness.? We did confirm appropriate gap balancing and stresses as well as alignment utilizing? [place] and were satisfied with this plan.? ?At this point time with my trials in place I then towel clip the patella everted this made appropriate measurements subsequently utilizing freehand technique performed by patellar resurfacing this was confirmed to be appropriate resection and subsequently sized to be a 31 mm symmetric.? My drill peg guides were then clamped and appropriate position and appropriate position in the patella for appropriate tracking and parallel with the joint.? Pegs were drilled trial implant was placed and the knee was then subsequently ranged and found to have excellent patellar tracking.? Femur pegs were then drilled.? All checkpoints as well as guidepins and arrays were removed and appropriate counts made.?Satisfied with our tibial placement rotation I then utilized the keel punch and prepped the tibia.? At this point time all of our trial implants were removed.? The wound bed? was thoroughly irrigated and dried and prepped for cementation.? Cement was mixed on the back table.? Once cement was ready this was then covered onto the tibia and the tibial baseplate was then impacted and all excess cement was removed.? Next the polyethylene was then impacted into place on the tibial baseplate.? Next cement was placed onto the femur as well as under the femur implants and impacted in to place and all excess cement was extruded and removed.? Knee was taken into full extension? to clear all excess cement was removed.? Warm saline was placed over the joint.? I then towel clip patella and dried for cementation. cemented the patella into place.? This was all clamped and the cement was allowed to cure.? Thorough irrigation performed with pulse?lavage.? I then placed my periarticular injection while the cement was curing.? Once cured the knee was taken through range of motion and had excellent stability and gaps were balanced in flexion and extension.? Tourniquet was then deflated. hemostasis satisfactory with electrocautery.? Next I then subsequently closed the capsule with Ethibond suture as well as a running strata fix suture.? Knee was then taken through range of motion 30 times.? Next the skin was then closed in?layered fashion of running stratifix sutures of deep and subcutenous tissue and skin.? ?closed in flexion and Prineo glue was then placed over the incision this allowed to cure.? Incision was covered with SUDEEP, with ABDs soft roll and Artemio wrap.? Patient was then awakened from anesthesia and taken to PACU in stable condition. Disposition: Patient taken to PACU in stable condition will be admitted to the floor for pain control PT/OT weight-bear as tolerated?Right?lower extremity dressing changes as needed, DVT prophylaxis. Pain control. Patient will receive appropriate postoperative antibiotics. patient will be seen today by the internal medicine team for medical management.? Patient will follow up with the office in 2 weeks.? Patient understands agrees with current plan.? All questions answered.
--- NOTE | 2023-11-30 15:16 | XRR_ITS ---
PROCEDURE INFORMATION: Exam: XR Right Knee Exam date and time: 11/30/2023 3:49 PM Age: 68 years old Clinical indication: Device placement; Joint replacement hardware; Prior surgery; Surgery date: Post-operative (0-2 days); Surgery type: Post op RT tka; Additional info: R tka postop TECHNIQUE: Imaging protocol: Radiologic exam of the right knee. Views: 1 or 2 views. COMPARISON: CT knee RT [facility] [id number] 11/20/2023 2:10 PM FINDINGS: Bones/joints: Recently placed right total knee arthroplasty in expected alignment. Soft tissues: Soft tissue swelling and air noted in the anterior knee consistent with recent surgical procedure. XR/XR knee RT 1-2V [id number] IMPRESSION: Postoperative radiographs demonstrating recently placed right total knee arthroplasty in expected alignment.
--- NOTE | 2023-11-30 15:50 | ANE.PACU2 ---
Inpatient post-anesthesia follow up: Airway intact: Yes Vital signs: Temperature 98.3 F Pulse Rate 73 Respiratory Rate 18 Blood Pressure 117/83 Pulse Oximetry 98 Oxygen Delivery Me thod Room Air Oxygen Flow Rate Fraction of Inspir ed Oxygen Hydration adequate: Yes Nausea and vomiting: No Pain level: 1 Mental status: Baseline
--- NOTE | 2023-11-30 15:51 | W.PM.BPON ---
Date of Procedure: [November 30, 2023] Surgeon: [Dr. Peña DO] Drug And Alcohol Counsellor(s): [Abisai Peña PA-C] Procedure(s) performed: [Right knee total arthroplasty with [place] robotic assist] Findings of the procedure(s): [Right knee degenerative joint disease] Estimated blood loss: [25 ml] Specimen(s) removed: [N/A] Post-operative diagnosis: [Right knee degenerative joint disease]
--- NOTE | 2023-11-30 15:55 | PM.PACU ---
PACU note Narrative: Patient is a 68-year-old female that just underwent a right total knee arthroplasty. Pt transferred to PACU in stable condition. Dressing is dry. pt is awake and alert. Distal pulses are palpable toes are warm and well-perfused. Cap refill is normal and under 2 seconds. Unable to further assess motor or sensory function of the right leg due to residual spinal anesthetic. pain is controlled. Exam: awake Disposition: admitted
--- NOTE | 2023-11-30 16:33 | PC.NURSE ---
This nurse spoke with PT whom which stated they rommel be over in the morning at 0730 on 12/01/23 to get pt up for the first time.
[2023-11-30] MEDS: chlorhexidine gluconate 0.12% Btl 473 mL 30 ML MUCOUS MEM ×2 (16:49→20:24)
[2023-11-30] MEDS: lactated ringers 1,000 ML 100 ML IV (16:50)
--- NOTE | 2023-11-30 17:13 | P.CONIM_ITS ---
Providers/Reason For Consult 2 Consulting Physician/Specialty*: Orthopedic Reason for Consult*: Hypertension, anxiety Attending Physician: Mike Peña DO Primary Care Provider: JOHN Mon History of Present Illness History of Present Illness Ana Wheeler is a 68 year old female with a past medical history of hypertension, anxiety, who presents [facility] right knee total arthroplasty, patient seen postoperatively, alert oriented x 3, following all commands, has no complaints, denies any chest pain, shortness of breath, no fevers, no chills, no nausea, no vomiting Review of Systems 2 Card: Denies: chest pain Resp: Denies: dyspnea GI: Denies: abdominal pain Neuro: Denies: headache(s) Medications/Allergies Home Medications Medication Instructions Recorded Confirmed Last Taken Type meloxicam 15 mg tablet 15 mg PO DAILY #90 tabs 04/30/23 11/27/23 11/20/23 Rx alprazolam 0.5 mg tablet 0.5 mg PO PRN PRN Anxiety 08/26/23 11/30/23 11/29/23 History cyclobenzaprine 5 mg tablet 5 mg PO TID PRN muscle spasm #30 09/15/23 11/27/23 11/27/23 Rx tabs pantoprazole 40 mg tablet,delayed 40 mg PO DAILY 11/16/23 11/30/23 11/29/23 History release telmisartan 40 mg tablet 40 mg PO DAILY #90 tabs 11/17/23 11/30/23 11/29/23 Rx Allergies Allergy/AdvReac Type Severity Reaction Status Date / Time Sulfa (Sulfonamide Allergy swelling Verified 11/27/23 08:56 Antibiotics) Current Medications Generic Name Dose Route Start Last Admin Trade Name Freq PRN Reason Stop Dose Admin Chlorhexidine Gluconate 30 ml 11/30/23 17:00 11/30/23 16:49 Chlorhexidine Gluconate 0.12% Btl 473 Ml MUCOUS MEM 30 ml QID SADIQ Administration Lactated Ringer's 1,000 mls @ 100 mls/hr 11/30/23 16:09 11/30/23 16:50 Lactated Ringers IV 100 mls/hr .Q10H SADIQ Administration PFSH Acute 2 PFSH: Medical History Gastritis UTI symptoms Psychiatric care Positive JAYESH (antinuclear antibody) History of gastroesophageal reflux (GERD) Has had symptoms since her 30s controlled on medication. Surgical History H/O esophagogastroduodenoscopy (09/06/21) History of colonoscopy 2013 2021 - colon polyp ,diverticulosis History of basal cell carcinoma (~2017) local excision on the face History of left knee surgery 2009----left knee scope History of hysterectomy (~1995) 03/14/1996----total abdominal hysterectomy, Cxcfgprc-Jcgaxrerf-Azhwqd procedure (still has ovaries). Diagnosis: Uterine fibroids and stress urinary incontinence. Performed by Dr. Emmanuel Maxwell at performed at [facility] in [place], [place]. Family History Mother Hypertension Father Hypertension Cancer prostate cancer-- father Hyperlipidemia Family/Other Colon cancer maternal aunt, two paternal aunts, all diagnosed in their 70s. Denies family history of Ovarian cancer Diabetes Clotting disorder Breast cancer Bleeding disorder Uterine cancer Stroke Social History Smoking and tobacco/nicotine status: never used tobacco/nicotine Vitals/I&O/Wt Last Vital Signs Temp 97.7 F 11/30/23 16:53 Pulse 82 11/30/23 16:53 Resp 16 11/30/23 16:53 BP 142/78 11/30/23 16:53 Pulse Ox 97 11/30/23 16:53 O2 Del Method Room Air 11/30/23 16:53 11/30/23 11/30/23 11/30/23 06:59 14:59 22:59 Intake Total 1650 / 1650 25 / 1675 Output Total 325 / 325 Balance 1650 / 1650 -300 / 1350 Weight last 48 hrs Weight 99.337 kg Weight 99.337 kg Physical Exam 2 Const: COMMON NORMALS: no acute distress and patient oriented x3 HENMT: COMMON NORMALS: normocephalic HEAD & SCALP: normocephalic Neck/C-Spine: COMMON NORMALS: no JVD Resp: COMMON NORMALS: normal respiratory effort, No retractions, No use of accessory muscles and clear to auscultation bilaterally AUSCULTATION: clear to auscultation bilaterally Cardio: COMMON NORMALS: no JVD, regular rate, regular rhythm, S1 normal heart sound present and S2 normal heart sound present RATE: regular rate RHYTHM: regular rhythm HEART SOUNDS: S1 normal heart sound present and S2 normal heart sound present GI: COMMON NORMALS: Normal to inspection, nondistended, normoactive bowel sounds present, Soft to palpation, non-tender, no masses and no bruits P ALPATION: Yes Soft to palpation Extremity: COMMON NORMALS: no calf tenderness and no pedal edema NARRATIVE EXTREMITY EXAM: Right knee in a binder Neuro: COMMON NORMALS: patient oriented x3 and CN's II-XII intact bilaterally Psych: COMMON NORMALS: mental status grossly normal Urinary Catheter Management: Patton: Cath Placed During This Visit: yes Urinary Catheter Date of Insertion: 11/30/23 Urinary Catheter Time of Insertion: 13:45 Data 11/30/23 12:25 11/30/23 12:25 A&P Assessment and plan (1) Anxiety: (2) History of arthroplasty of right knee: Plan Right knee total arthroplasty ? Pain control anticoagulation as per orthopedic team ? PT OT Hypertension, resume home blood pressure medication Anxiety, resume home anxiety medication Consult Attestations 2 Medical Necessity Statement: Patient requires hospitalization, for right knee arthroplasty Diagnoses Anxiety F41.9 History of arthroplasty of right knee Z96.651
[2023-11-30] MEDS: mupirocin oint 22 gm 1 APPLIC NASAL (18:14)
[2023-11-30] MEDS: iron polysaccharide complex 150 mg Capsule PO (18:14)
[2023-11-30] MEDS: sennosides-docusate Tablet 2 TAB PO (18:14)
[2023-11-30] MEDS: docusate sodium 100 mg Capsule PO (18:14)
[2023-11-30] MEDS: tranexamic acid 1,000 MG/100 ML PREMIX 600 MG IV (20:24)
[2023-11-30] MEDS: ALPRAZolam 0.5 mg Tablet PO (23:38)
[2023-12-01] MEDS: cyclobenzaprine 10 mg Tablet 5 MG PO (00:33)
[2023-12-01] MEDS: lactated ringers 1,000 ML 100 ML IV (04:16)
[2023-12-01] MEDS: acetaminophen 1,000 MG/100 ML PIGGYBACK 400 MG IV (04:16)
[2023-12-01] MEDS: ceFAZolin 2,000 MG in sodium chloride 0.9% (plus) 50 ML 100 MG IV (05:26)
[2023-12-01 05:31] VITALS: BP 163/89; PULSE 73; RESP 15; TEMP 36.5; O2SAT 95
[2023-12-01 06:07] VITALS: BP 185/77
[2023-12-01 06:20] LABS: Basophils % 0.2 %; Hematocrit 35.2 % (36-47); Lymphocytes # 1.8 10^3/uL (0.8-4.8); Lymphocytes % 14.1 %; Mean Corpuscular HGB Conc 31.8 g/dL (30-55); Mean Corpuscular Hemoglobin 25.6 pg (27-33); Mean Corpuscular Volume 80.4 fl (85-98); Mean Platelet Volume 10.3 fL (7.4-10.4); Monocytes % 8.1 %; Neutrophils # 9.57 10^3/uL (1.8-7.7); Neutrophils % 77.3 %; Nucleated Red Blood Cells % 0 %; Platelet Count 353 10^3/cmm (157-399); Red Blood Count 4.38 10^6/uL (3.85-5.65); White Blood Count 12.38 10^3/uL (3.29-11.43)
[2023-12-01 06:37] LABS: Anion Gap 16.1 (5-19); Blood Urea Nitrogen 8 mg/dL (8-23); Calcium 8.7 mg/dL (8.5-10.5); Carbon Dioxide 24 mmol/L (22-29); Chloride 105 mmol/L (98-107); Creatinine Clr Calc Pharmacy 81.1334; Glomerular Filtration Rate 99.7 mL/min (90-130); Glucose 105 mg/dL (65-115); Osmolality Calculated 291 mOsm/kg (285-295); Potassium 4.1 mmol/L (3.5-5.1); Sodium 141 mmol/L (136-145)
[2023-12-01 06:52] VITALS: BP 184/71
[2023-12-01] MEDS: losartan 50 mg Tablet 100 MG PO (06:52)
[2023-12-01] MEDS: ketorolac 30 mg/mL INJ 15 MG IVP (07:23)
[2023-12-01] MEDS: iron polysaccharide complex 150 mg Capsule PO (09:39)
[2023-12-01] MEDS: multivitamin therapeutic Tablet 1 TAB PO (09:39)
[2023-12-01] MEDS: calcium carb-vit d 600mg/400unit 1 Tablet 1 EACH PO (09:39)
[2023-12-01] MEDS: apixaban 5 mg Tablet 2.5 MG PO (09:39)
[2023-12-01] MEDS: mupirocin oint 22 gm 1 APPLIC NASAL (09:40)
[2023-12-01] MEDS: chlorhexidine gluconate 0.12% Btl 473 mL 30 ML MUCOUS MEM (09:40)
[2023-12-01 10:00] VITALS: BP 117/83; PULSE 73; RESP 18; TEMP 36.8; O2SAT 98
[2023-12-01 10:05] VITALS: BP 117/83; PULSE 73; RESP 18; TEMP 36.8; O2SAT 98
--- NOTE | 2023-12-01 11:16 | P.PN_ITS ---
Subjective 2 Subjective: Patient was seen this morning, blood pressures overnight were over 180, systolic over 98, she was given her blood pressure medication this morning, denies any fevers, chills no headache, blurry vision no chest pain no palpitations, will recheck on blood pressure thereafter, if her blood pressure improves, she can discharge, she is discharging on Eliquis 2.5 mg twice daily, for DVT prophylaxis, advised to monitor for bloody or black stools, advised to not use with meloxicam Vitals/I&O/Wt Last Vital Signs Temp 98.3 F 12/01/23 10:05 Pulse 73 12/01/23 10:05 Resp 18 12/01/23 10:05 BP 117/83 12/01/23 10:05 Pulse Ox 98 12/01/23 10:05 O2 Del Method Room Air 12/01/23 10:00 11/30/23 12/01/23 12/01/23 22:59 06:59 14:59 Intake Total 175 / 1825 1100 / 2925 Output Total 775 / 775 1500 / 2275 75 / 75 Balance -600 / 1050 -400 / 650 -75 / -75 Weight last 48 hrs Weight 99.337 kg Weight 99.337 kg Physical Exam 2 Const: COMMON NORMALS: no acute distress and patient oriented x3 Resp: COMMON NORMALS: normal respiratory effort, No retractions, No use of accessory muscles and clear to auscultation bilaterally AUSCULTATION: clear to auscultation bilaterally Cardio: COMMON NORMALS: regular rate, regular rhythm, S1 normal heart sound present and S2 normal heart sound present RATE: regular rate RHYTHM: r egular rhythm HEART SOUNDS: S1 normal heart sound present and S2 normal heart sound present GI: COMMON NORMALS: Normal to inspection, nondistended, normoactive bowel sounds present, Soft to palpation, non-tender, No hepatosplenomegaly present, no masses and no bruits PALPATION: Yes Soft to palpation and Yes No hepatosplenomegaly present Extremity: COMMON NORMALS: no pedal edema NARRATIVE EXTREMITY EXAM: Lower extremity in the binder Neuro: COMMON NORMALS: patient oriented x3 Psych: COMMON NORMALS: mental status grossly normal Urinary Catheter Management: Patton: Cath Placed During This Visit: yes, but has since been removed by the nurse Reason for Continuing Indwelling Catheter: Decision to DC Catheter Urinary Catheter Date of Insertion: 11/30/23 Urinary Catheter Time of Insertion: 13:45 Date Urinary Catheter Removed: 12/01/23 Time Urinary Catheter Discontinued: 09:00 Data 12/01/23 06:00 12/01/23 06:00 A&P Assessment and plan (1) Anxiety: (2) History of arthroplasty of right knee: Plan Right knee total arthroplasty ? Pain control anticoagulation as per orthopedic team ? PT OT Hypertension, resume home blood pressure medication Anxiety, resume home anxiety medication Attestations 2 Medical Necessity Statement*: See primary care provider in the next few days, monitor blood pressure closely, Diagnoses Anxiety F41.9 History of arthroplasty of right knee Z96.651
--- NOTE | 2023-12-03 21:45 | P.DS_ITS ---
Discharge Providers Date of Admission: 11/30/23 15:13 Date of Discharge: December 01, 2023 Attending Provider at Admission: Mike Peña DO Attending Provider at Discharge: Mike Peña DO Consults: Dr. Zafar?hospitalist Primary Care Provider: JOHN Mon Diagnoses at Discharge Discharge Diagnosis (1) Anxiety: Status: Acute (2) History of arthroplasty of right knee: Status: Acute Reason for Visit Reason for Visit: M17.11 Brief History: Status post right TKA Hospital Course Hospital Course Patient presented to the preoperative holding area with plan for right total knee arthroplasty after patient has been worked up in the outpatient setting for failed conservative treatment of [right] knee degenerative joint disease. Once cleared by anesthesia for surgery patient subsequently was taken back to the operative suite underwent anesthesia per anesthesia department and then subsequently underwent a [right] total knee arthroplasty. Procedure was performed without any complications patient was taken to PACU in stable condition patient recovered well in PACU and then was admitted to the floor postoperatively internal medicine was consulted and on board for medical management and assistance with care. Patient received appropriate PT/OT, postoperative antibiotics, postoperative TXA, pain control, postoperative DVT prophylaxis. Elevation and ice. Patient encouraged for knee range of motion allowed weightbearing as tolerated to the operative lower extremity. Dressing was changed as needed, labs were monitored daily. Patient recovered well postoperatively and worked well and progressed well with therapy. It was determined on postoperative day [1 ] the patient was stable for discharge from an orthopedic standpoint and medicine. Patient was comfortable with discharge and plan was discharged home. Patient received appropriate discharge instructions as well as pain medication and DVT prophylaxis postoperatively. Given appropriate instructions for dressing management. Patient will follow-up with Dr. Peña/orthopedics in the office in 2 weeks. All questions answered. Understand if there is any issues questions or concerns and contact the office. Physical Exam Narrative: Dressing to right knee is clean dry and intact normal postoperative swelling and tenderness palpation of the right knee patient is calf soft nontender compartments soft and compressible distal pulses palpable right lower extremity is warm well-perfused, patient is able to wiggle toes plantarflex and dorsiflex ankle sensations intact light touch distally. Urinary Catheter Management: Patton: Cath Placed During This Visit: yes, but has since been removed by the nurse Reason for Continuing Indwelling Catheter: Decision to DC Catheter Urinary Catheter Date of Insertion: 11/30/23 Urinary Catheter Time of Insertion: 13:45 Date Urinary Catheter Removed: 12/01/23 Time Urinary Catheter Discontinued: 09:00 Discharge Data Studies Completed and Pending Completed Studies During Hospitalization Category Date Time Status XR knee RT 1-2V [id number] Routine Exams 11/30/23 15:16 Completed Radiology Impressions Knee X-Ray 11/30/23 15:16 IMPRESSION: Postoperative radiographs demonstrating recently placed right total knee arthroplasty in expected alignment. Laboratory Results WBC 12.38 10^3/uL (3.29-11.43) H 12/01/23 06:00 RBC 4.38 10^6/uL (3.85-5.65) 12/01/23 06:00 Hgb 11.20 g/dL (11.27-16.99) L 12/01/23 06:00 Hct 35.2 % (36-47) L 12/01/23 06:00 MCV 80.4 fl (85-98) L 12/01/23 06:00 MCH 25.6 pg (27-33) L 12/01/23 06:00 MCHC 31.8 g/dL (30-55) 12/01/23 06:00 RDW 15.0 % (12.1-15.1) 12/01/23 06:00 Plt Count 353 10^3/cmm (157-399) 12/01/23 06:00 MPV 10.3 fL (7.4-10.4) 12/01/23 06:00 Neut % (Auto) 77.3 % 12/01/23 06:00 Lymph % (Auto) 14.1 % 12/01/23 06:00 [place] % (Auto) 8.1 % 12/01/23 06:00 Eos % (Auto) 0.0 % 12/01/23 06:00 Baso % (Auto) 0.2 % 12/01/23 06:00 Neut # (Auto) 9.57 10^3/uL (1.8-7.7) H 12/01/23 06:00 Lymph # (Auto) 1.8 10^3/uL (0.8-4.8) 12/01/23 06:00 [place] # (Auto) 1.0 10^3/uL (0.2-0.9) H 12/01/23 06:00 Eos # (Auto) 0.0 10^3/uL (0.0-0.8) 12/01/23 06:00 Baso # (Auto) 0.0 10^3/uL (0.0-0.1) 12/01/23 06:00 Nucleated RBC % (auto) 0 % 12/01/23 06:00 Nucleated RBCs # 0.0 /100WBC 12/01/23 06:00 Sodium 141 mmol/L (136-145) 12/01/23 06:00 Potassium 4.1 mmol/L (3.5-5.1) 12/01/23 06:00 Chloride 105 mmol/L (98-107) 12/01/23 06:00 Carbon Dioxide 24 mmol/L (22-29) 12/01/23 06:00 Anion Gap 16.1 (5-19) 12/01/23 06:00 BUN 8 mg/dL (8-23) 12/01/23 06:00 Creatinine 0.6 mg/dL (0.5-0.9) 12/01/23 06:00 GFR Calculation 99.7 mL/min (90-130) 12/01/23 06:00 Glucose 105 mg/dL (65-115) 12/01/23 06:00 Calculated Osmolality 291 mOsm/kg (285-295) 12/01/23 06:00 Calcium 8.7 mg/dL (8.5-10.5) 12/01/23 06:00 Blood Type B Positive 11/30/23 12:25 Blood Type Cancelled 11/30/23 12:25 Rho(D) Type Cancelled 11/30/23 12:25 Rho(D) Type Rh positive 11/30/23 12:25 Antibody Screen Cancelled 11/30/23 12:25 Antibody Screen Negative 11/30/23 12:25 Vitals Last Vital Signs Temp 98.3 F 12/01/23 10:05 Pulse 73 12/01/23 10:05 Resp 18 12/01/23 10:05 BP 117/83 12/01/23 10:05 Pulse Ox 98 12/01/23 10:05 O2 Del Method Room Air 12/01/23 10:00 Discharge Plan Discharge Patient Disposition: Home Condition: Stable Prescriptions: New Eliquis 2.5 mg tablet 2.5 mg PO BID 14 Days Qty: 28 0RF Calcium 600 + D(3) 600 mg-10 mcg (400 unit) tablet 1 tab PO DAILY 30 Days Qty: 30 0RF methocarbamol 500 mg tablet 500 mg PO Q8H PRN (Reason: muscle spasms) 14 Days Qty: 42 0RF Continued alprazolam 0.5 mg tablet 0.5 mg PO PRN PRN (Reason: Anxiety) pantoprazole 40 mg tablet,delayed release (DR/EC) 40 mg PO DAILY telmisartan 40 mg tablet 40 mg PO DAILY Qty: 90 0RF Held meloxicam 15 mg tablet 15 mg PO DAILY Qty: 90 1RF Hold Instructions: Resume on 12/15/23. Hold while on blood thinner cyclobenzaprine 5 mg tablet 5 mg PO TID PRN (Reason: muscle spasm) Qty: 30 1RF Hold Instructions: Resume on 12/15/23. Hold if taking Robaxin No Action tramadol 50 mg tablet 50 mg PO Q6H PRN (Reason: pain) 7 Days Qty: 28 0RF Discharge Orders: Discharge Order (Routine); Ordered 12/01/23 Ordered By: Mike Peña Referrals: Mike Peña DO [Physician] - 12/15/23 8:15 am Discharge Diet: Regular Discharge Activity: Limit activity as instructed and Use walker/crutches as instructed Patient Instructions: Methocarbamol (By mouth) (Robaxin, Robaxin-750), Ondansetron (By mouth) (Zofran, Zofran ODT, Zuplenz), Oxycodone, Slow Release (By mouth), Calcium/Vitamin D Supplement (By mouth) (Jorge-Citrate, Jorge- Citrate..., Apixaban (By mouth) (Eliquis), How to Choose and Use a Walker (GEN), Precautions after Total Joint Replacement Surgery (DC), Negative Pressure Wound Therapy (DC), Revision Total Joint Arthroplasty (DC), Opioid Safety Activity Restrictions/Additional Instructions: Orthopedic discharge instructions Anju Dressing--Keep dressing on and dry. After 3 days you can remove marcia bandage and shower. disconnect battery pack when showering. Anju dressing will stay on until follow up appt in 2 weeks. The battery pack for the dressing will at 5-7 days. Battery pack can be removed and discarded once batteries . Patient may weight-bear as tolerate to the operative extremity Utilize crutches as needed Encourage knee range of motion Ice and elevate as needed for pain and swelling Take pain medication as prescribed Take antinausea medication as needed The prescribed Eliquis twice daily for the next 14 days for blood clot prevention May supplement for pain with Tylenol [id number] as needed Can try hold Flexeril muscle relaxer if not working there is a prescription of Robaxin do not take both at the same time No baths or soaks Follow-up in the orthopedic office in 2 weeks Contact the office for any questions or concerns Discharge Attestations Time Spent in Discharge Care*: less than 30 min Quality Metrics Clinical Quality Measures [ No reported AMI, CVA or VTE this stay] Coding Level of Care Code Acute Code for Chg Fwd Diagnoses Anxiety F41.9 History of arthroplasty of right knee Z96.651 Time Spent (min) 20
== END 2023-12-01 10:05 | disposition home or self-care (01) ==
LOC: OBGYN 15:16
PROVIDERS: Physician Assistant; Admitting Provider Student in an Organized Health Care Education/Training Program; PCP Nurse Practitioner Family; Visit Provider Student in an Organized Health Care Education/Training Program
PROC: 8E0Y0CZ Robotic Assisted Procedure of Lower Extremity, Open Approach (ICD-10-PCS; CPT 27447; principal; 2023-11-30 13:50)
DX: M17.11 Unilateral primary osteoarthritis, right knee (principal); I10 Essential (primary) hypertension; K21.9 Gastro-esophageal reflux disease without esophagitis
CPT/HCPCS: 20985; 27447; 36415; 51702; 73560; 80048; 85025; 86850; 86900; 97110; 97116; 97161; C1713; C1776; G0378; J0131; J0171; J0690; J1100; J1885; J2704; J2795; J3370; J7030; J7120

== ENCOUNTER 2023-12-08 06:00 | Outpatient (RCR) | payer OTHER, BC, SELFPAY | END 2023-12-13 23:59 | disposition home or self-care (01) | LOC: WPT 06:00 | PROVIDERS: Visit Provider Student in an Organized Health Care Education/Training Program | DX: Z47.1 Aftercare following joint replacement surgery (principal); Z96.651 Presence of right artificial knee joint | CPT/HCPCS: 97110; 97140; 97161; 97530 ==

== ENCOUNTER 2023-12-14 06:00 | Outpatient (RCR) | payer OTHER, BC, SELFPAY | END 2024-01-13 23:59 | disposition home or self-care (01) | LOC: WPT 06:00 | PROVIDERS: Visit Provider Student in an Organized Health Care Education/Training Program | DX: Z47.1 Aftercare following joint replacement surgery (principal); Z96.651 Presence of right artificial knee joint | CPT/HCPCS: 97110; 97112; 97140; 97530 ==

== ENCOUNTER → 2023-12-15 08:10 | Outpatient (BNVA) | payer OTHER, BC, SELFPAY | PROVIDERS: Visit Provider Physician Assistant | DX: Z96.651 Presence of right artificial knee joint (principal) | CPT/HCPCS: 73560; 73565 ==

== ENCOUNTER 2024-01-14 06:00 | Outpatient (RCR) | payer OTHER, BC, SELFPAY | END 2024-02-13 23:59 | disposition home or self-care (01) | LOC: WPT 06:00 | PROVIDERS: Visit Provider Student in an Organized Health Care Education/Training Program | DX: Z47.1 Aftercare following joint replacement surgery (principal); Z96.651 Presence of right artificial knee joint | CPT/HCPCS: 97110; 97112; 97530 ==

== ENCOUNTER → 2024-01-28 08:02 | Outpatient (BNVA) | payer OTHER, BC, SELFPAY | PROVIDERS: PCP Nurse Practitioner Family; Visit Provider Physician Assistant | DX: Z96.651 Presence of right artificial knee joint (principal); Z48.89 Encounter for other specified surgical aftercare | CPT/HCPCS: 73560; 73565 ==

== ENCOUNTER 2024-03-14 07:05 | Outpatient (CLI) | payer OTHER, BC, SELFPAY ==
--- NOTE | 2024-03-14 07:15 | MR_ITS ---
WS: [id number] MRI LUMBAR SPINE NONCONTRAST TECHNIQUE: Sagittal T1, T2 and STIR imaging. Axial T1 and T2 imaging. CLINICAL INFORMATION: M51.36 - Other intervertebral disc degeneration, lumbar r... COMPARISON: 12/01/2022 FINDINGS: Mild lumbar curve. No acute compression. Slight anterolisthesis L4 on L5. Disc desiccation worse at L 5-S1. L1-L2: Normal. L2-L3: Slight retrolisthesis. Mild annular bulging. Slight effacement of the ventral thecal sac. Mild facet arthropathy. Slight narrowing subarticular recess. Foramen are patent. L3-L4: Mild annular bulging. Narrowing of the LEFT subarticular recess. Mild facet arthropathy. Sade en are patent. L4-L5: Slight anterolisthesis L4 on L5. Mild annular bulging with narrowing of the LEFT greater than RIGHT subarticular recess. Mild central canal stenosis. Moderate facet arthropathy. Foramen are paten t. L5-S1: Disc desiccation with endplate degenerative changes. Mild facet arthropathy. Spinal canal and foramen are patent. Slight contact of the traversing RIGHT S1 nerve root in the subarticular recess. Visualized pelvic bony structures: Normal. Paravertebral soft tissues: Normal. MR/MR lumbar spine wo con* [id number] IMPRESSION: 1. Mild annular bulging L2-3 appears slightly progressed compared to previous with slight narrowing of the subarticular recess. 2. Otherwise no significant changes. 3. Mild central canal stenosis L4-5 with grade 1 anterolisthesis and narrowing of the subarticular recess bilaterally. 4. Mild annular bulge L5-S1 with slight contact of the RIGHT S1 nerve root unc hanged. 5. Moderate facet arthropathy L4-5.
== END 2024-03-14 07:06 | disposition home or self-care (01) ==
LOC: RAD 07:07
PROVIDERS: PCP Nurse Practitioner Family; Visit Provider Nurse Practitioner Family
DX: M51.36 Other intervertebral disc degeneration, lumbar region (principal); M47.896 Other spondylosis, lumbar region; M54.16 Radiculopathy, lumbar region; M43.16 Spondylolisthesis, lumbar region
CPT/HCPCS: 72148

== ENCOUNTER 2024-03-15 06:00 | Outpatient (RCR) | payer OTHER, BC, SELFPAY | END 2024-04-14 23:59 | disposition home or self-care (01) | LOC: WPT 06:00 | PROVIDERS: PCP Nurse Practitioner Family; Visit Provider Nurse Practitioner Family | DX: M54.16 Radiculopathy, lumbar region (principal) | CPT/HCPCS: 97110; 97112; 97162; 97530 ==

== ENCOUNTER → 2024-03-24 14:03 | Outpatient (BNVA) | payer OTHER, BC, SELFPAY | PROVIDERS: PCP Nurse Practitioner Family; Visit Provider Orthopaedic Surgery | DX: M54.50 Low back pain, unspecified (principal) | CPT/HCPCS: 72110 ==

== ENCOUNTER 2024-04-15 06:00 | Outpatient (RCR) | payer OTHER, BC, SELFPAY | END 2024-05-14 23:59 | disposition home or self-care (01) | LOC: WPT 06:00 | PROVIDERS: PCP Nurse Practitioner Family; Visit Provider Nurse Practitioner Family | DX: M54.16 Radiculopathy, lumbar region (principal) | CPT/HCPCS: 97110; 97112; 97530 ==

== ENCOUNTER → 2024-04-21 13:04 | Outpatient (BNVA) | payer OTHER, BC, SELFPAY | PROVIDERS: PCP Nurse Practitioner Family; Visit Provider Orthopaedic Surgery | DX: M54.9 Dorsalgia, unspecified (principal) | CPT/HCPCS: 72110 ==

== ENCOUNTER 2024-05-15 06:00 | Outpatient (RCR) | payer OTHER, BC, SELFPAY | END 2024-06-14 23:59 | disposition home or self-care (01) | LOC: WPT 06:00 | PROVIDERS: PCP Dermatology; Visit Provider Nurse Practitioner Family | DX: M54.16 Radiculopathy, lumbar region (principal) | CPT/HCPCS: 97110; 97112; 97530 ==

== ENCOUNTER → 2024-06-02 08:06 | Outpatient (BNVA) | payer OTHER, BC, SELFPAY | PROVIDERS: PCP Dermatology; Visit Provider Student in an Organized Health Care Education/Training Program | DX: Z96.651 Presence of right artificial knee joint (principal); R03.0 Elevated blood-pressure reading, without diagnosis of hypertension | CPT/HCPCS: 73560; 73565 ==

== ENCOUNTER → 2024-07-14 13:08 | Outpatient (BNVA) | payer OTHER, BC, SELFPAY | PROVIDERS: PCP Nurse Practitioner Family; Visit Provider Nurse Practitioner Family | DX: M79.672 Pain in left foot (principal) | CPT/HCPCS: 73630 ==

== ENCOUNTER → 2024-08-01 07:58 | Outpatient (BNVA) | payer OTHER, BC, SELFPAY | PROVIDERS: PCP Nurse Practitioner Family; Visit Provider Nurse Practitioner Women's Health | DX: Z13.21 Encounter for screening for nutritional disorder (principal) | CPT/HCPCS: 82306; 84443 ==

== ENCOUNTER → 2024-09-06 09:35 | Outpatient (BNVA) | payer OTHER, BC, SELFPAY | PROVIDERS: PCP Nurse Practitioner Family; Visit Provider Podiatrist Foot & Ankle Surgery | DX: M25.872 Other specified joint disorders, left ankle and foot (principal); M79.672 Pain in left foot | CPT/HCPCS: 73620 ==

== ENCOUNTER 2024-09-16 08:57 | Outpatient (CLI) | payer OTHER, BC, SELFPAY ==
--- NOTE | 2024-09-16 09:00 | MM_ITS ---
WS: [id number] BILATERAL SCREENING DIGITAL TOMOSYNTHESIS MAMMOGRAM WITH CAD HISTORY: Z12.31 - Encounter for screening mammogram for malignant ... COMPARISON: 08/19/2023, 07/02/2022 Bilateral CC and MLO views with tomosynthesis and synthetic mammography submitted. Computer aided detection analyzed. Breast composition: The breasts are almost entirely fatty. No suspicious masses, microcalcifications or architectural distortion. Benign coarse calcification central RIGHT breast is probably a fibroadenoma. No interval change. MM/MM scr BI tomosynthesis [id number] IMPRESSION: BI-RADS: 2 - Benign. FOLLOW UP: 1 Year Follow-up
--- NOTE | 2024-09-16 09:00 | XR_ITS ---
WS: [id number] DEXA (DUAL ENERGY X-RAY ABSORPTIOMETRY) Bone mineral density was performed using a [employer] machine. HISTORY: Z78.0 - Asymptomatic menopausal state COMPARISON: None available. Lumbar spine BMD (L1-L4): 1.244 g/cm2 T score: 0.5 Z score: 1.0 Total hip BMD: Left: 0.854 g/cm2. T score: -1.2 Z score: -0.7 Right: 0.837 g/cm2. T score: -1.4 Z score: -0.8 10 year probability of a major osteoporotic fracture is 14.2%. XR/XR DEXA axial skeleton* [id number] IMPRESSION: OSTEOPENIA based upon the WHO classification for females.
== END 2024-09-16 08:58 | disposition home or self-care (01) ==
PROVIDERS: PCP Nurse Practitioner Family; Visit Provider Nurse Practitioner Women's Health
DX: Z12.31 Encounter for screening mammogram for malignant neoplasm of breast (principal); Z78.0 Asymptomatic menopausal state; Z13.820 Encounter for screening for osteoporosis; R92.313 Mammographic fatty tissue density, bilateral breasts; R92.1 Mammographic calcification found on diagnostic imaging of breast; M85.80 Other specified disorders of bone density and structure, unspecified site
CPT/HCPCS: 77063; 77067; 77080

== ENCOUNTER → 2024-11-15 08:38 | Outpatient (BNVA) | payer OTHER, BC, SELFPAY | PROVIDERS: PCP Nurse Practitioner Family; Visit Provider Nurse Practitioner Family | DX: S96.911A Strain of unspecified muscle and tendon at ankle and foot level, right foot, initial encounter (principal); S86.911A Strain of unspecified muscle(s) and tendon(s) at lower leg level, right leg, initial encounter; X58.XXXA Exposure to other specified factors, initial encounter | CPT/HCPCS: 73590 ==

== ENCOUNTER → 2024-11-16 14:15 | Outpatient (BNVA) | payer OTHER, BC, SELFPAY | PROVIDERS: PCP Nurse Practitioner Family; Visit Provider Physician Assistant | DX: S86.911A Strain of unspecified muscle(s) and tendon(s) at lower leg level, right leg, initial encounter (principal); Z96.651 Presence of right artificial knee joint; X58.XXXA Exposure to other specified factors, initial encounter | CPT/HCPCS: 73560; 73565 ==

== ENCOUNTER → 2025-01-16 08:33 | Outpatient (BNVA) | payer OTHER, BC, SELFPAY | PROVIDERS: PCP Nurse Practitioner Family; Visit Provider Nurse Practitioner Family | DX: I10 Essential (primary) hypertension (principal); E55.9 Vitamin D deficiency, unspecified; Z79.899 Other long term (current) drug therapy; E78.5 Hyperlipidemia, unspecified | CPT/HCPCS: 80053; 80061; 81003; 82306; 83036; 84443; 85025 ==

== ENCOUNTER 2025-05-02 14:08 | Outpatient (CLI) | payer OTHER, BC, SELFPAY ==
--- NOTE | 2025-05-02 14:30 | MR_ITS ---
WS: [id number] MRI LEFT FOOT WITHOUT CONTRAST. COMPARISON: 07/14/2024 Multiplanar, multisequence imaging is performed without contrast. History: Pain sesamoid of the first toe. Mild hallux valgus. Mild degenerative changes in the first metatarsal head. Very small erosion along the medial first metatarsal head. Normal flexor hallucis longus. Normal sesamoid bones. No Sun's neuroma. There is a very small amount of fluid at the first IP joint. No tendon or ligament injury identified. No soft tissue masses are identified. No marrow edema or acute fractures are identified. Normal alignment at the tarsometatarsal junction. Lisfranc ligament is identified and normal. MR/MR foot LT wo con* [id number] IMPRESSION: 1. Mild hallux valgus deformity. 2. Normal appearance of the sesamoids associated with the first metatarsal hea d. 3. Small extra-articular erosion along the medial first metatarsal head. This can be seen with gout or arthritis. 4. Lisfranc ligament is normal. 5. No soft tissue mass.
== END 2025-05-02 14:09 | disposition home or self-care (01) ==
LOC: RAD 14:09
PROVIDERS: PCP Nurse Practitioner Family; Visit Provider Nurse Practitioner Family
DX: M25.872 Other specified joint disorders, left ankle and foot (principal); M20.12 Hallux valgus (acquired), left foot; R93.6 Abnormal findings on diagnostic imaging of limbs; M19.072 Primary osteoarthritis, left ankle and foot
CPT/HCPCS: 73718